=== PATIENT | female | born 1995 | race Caucasian/White ===

== ENCOUNTER 2016-07-18 23:28 | Emergency (ER) | payer OTHER ==
[~2016-07-18] VITALS: Ht 172.7 cm; Wt 50.2 kg
[~2016-07-18 23:28] MED LIST: MINO55TA
[2016-07-18 23:34] VITALS: Ht 172.7 cm; Wt 50.2 kg
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
[2016-07-19] MEDS ORDERED: BIOT1CAP8 PO (00:41)
[2016-07-19 00:57] VITALS: BP 122/91; PULSE 91; TEMP 36.7; O2SAT 100
--- NOTE | 2016-07-20 08:25 | DIAGNOSTIC IMAGING REPORT ---
HEAD CT NONCONTRAST CT DOSE: 537.48 mGy.cm HISTORY: head injury TECHNIQUE: Multiaxial CT images of the head were performed without the use of intravenous contrast. Automated exposure control was utilized for this study. Comparison: None. Findings: The paranasal sinuses and mastoid air cells are clear. The calvarium and skull base are intact. The ventricles and sulci are within normal limits. There is no mass, hematoma, midline shift, or acute infarct. Impression: No acute intracranial abnormality. Electronically signed by: Jay Law M.D. 07/19/2016 6:09 AM Dictated Date/Time: 07/19/2016 6:07 AM
== END 2016-07-19 00:58 | disposition home or self-care (01) ==
LOC: C.EDB 23:30 → C.EDC 07-19 00:58
DX: R51 Headache (principal)